=== PATIENT | male | born 1980 | race American Indian/Alaskan Native ===

== ENCOUNTER 2017-06-15 22:16 | Emergency (ER) | payer SELFPAY ==
[2017-06-15 22:22] VITALS: BP 136/88
[2017-06-16 02:32] LABS: Bilirubin,Urine NEG (Negative); Blood,Urine SM (Negative); Color,Urine Yellow (Yellow); Protein,Urine <15 mg/dL mg/dL (Negative); Urobilinogen,Urine < 2.0 mg/dL (<2.0)
== END 2017-06-16 02:53 ==
LOC: ED 22:16
DX: R36.9 Urethral discharge, unspecified (principal); Z53.21 Procedure and treatment not carried out due to patient leaving prior to being seen by health care provider
CPT/HCPCS: 81001; 87591